=== PATIENT | female | born 1975 | race Two or more races ===

== ENCOUNTER 2018-02-28 13:56 | Day surgery (SDC) | payer OTHER ==
[2018-02-22 15:41] VITALS: BMI 33.4
--- NOTE | 2018-02-28 11:00 | HP ---
History & Physical Update - History History: No Change - Physical Physical: No Change - Assessment Assessment: No Change - Plan Plan: No Change (full H&P in chart from 02/10/2018)
[~2018-02-28 13:56] MED LIST: ACETAMINOPHEN 325 MG TABLET (FP) PO PRN; BUPIVACAINE HCL/PF (5 MG/ML) 30 ML VIAL IJ ONE; CLINDAMYCIN PHOSPHATE 600 MG/4 ML VIAL ONE; DEXAMETHASONE SOD PHOSPHATE 4 MG/1 ML VIAL ONE; DEXAMETHASONE SOD PHOSPHATE/PF 10 MG/ML SDV ONE; GELATIN, ABSORBABLE 100 EACH SPONGE TP ONE; KETAMINE HCL 200 MG/20 ML VIAL ONE; LIDOCAINE 1%/EPI 1:100000 (20 ML MULTI DOSE VIAL) ONE; MIDAZOLAM HCL 2 MG/2 ML SINGLE DOSE VIAL ONE; ONDANSETRON 4 MG/2 ML VIAL IVPUSH PRN; ONDANSETRON 4 MG/2 ML VIAL ONE; PROMETHAZINE HCL 25 MG/1 ML VIAL IVPUSH PRN; PROPOFOL 20 ML ONE; SUCCINYLCHOLINE CHLORIDE 200 MG/10 ML VIAL ONE; THROMBIN (BOVINE) 5,000 UNIT VIAL TP ONE; fentaNYL CITRATE 250 MCG/5 ML VIAL ONE; oxyCODONE HCL 10 MG SUSTAINED ACTING TABLET PO ONE; oxyCODONE HCL 5 MG TABLET PO PRN
[2018-02-28] MEDS ORDERED: LACTATED RINGERS SOLUTION 1,000 ML IV SCH ×2 (14:00)
[2018-02-28] MEDS ORDERED: NAPROXEN 500 MG TABLET (FP) PO SCH (14:00)
[2018-02-28] MEDS ORDERED: ALBUTEROL SO4 8 GM HFA INHALER IH PRN (14:00)
--- NOTE | 2018-02-28 14:03 | OP ---
Operative Note - Note: Operative Date: 02/28/18 Pre-Operative Diagnosis: cervcial stenosis Operation: anterior cervical disectomy and fusion of C4-C5 and C5-C6 Surgeon: Phill Caballero Process Mold Technician: Valarie Gonzales Anesthesiologist/BLACK ASH WORKER: Alvin Wood Anesthesia: Spinal Estimated Blood Loss (mls): 20 Fluid Volume Replaced (mls): 1,300 Operative Report Dictated: Yes
--- NOTE | 2018-02-28 14:08 | SURG ---
Surgery Aircraft De Icer Installer Note Aircraft De Icer Installer: Valarie Gonzales PA-C Date of Service: 02/28/18 Diagnosis: cervical stenosis Procedure: anterior cervcial disectomy fusion of C4-C5 and C5-C6 I was present for the entirety of the operative procedure. For further detail, please refer to operative report. Visit type - Case Type Case Type: Scheduled - Emergency Emergency Visit: No - New patient This patient is new to me today: Yes Date on this admission: 02/28/18
[2018-02-28] MEDS ORDERED: ACETAMINOPHEN 325 MG TABLET (FP) ONE (14:42)
[2018-02-28] MEDS ORDERED: diazePAM 2 MG TABLET ONE (14:42)
[2018-02-28] MEDS ORDERED: diazePAM 2 MG TABLET PO SCH (15:00)
[2018-02-28] MEDS ORDERED: oxyCODONE HCL 5 MG TABLET ONE (15:58)
[2018-02-28] MEDS ORDERED: BENZOCAINE/MENTH/CETYLPYRD CL 1 EACH LOZENGE MM PRN (16:27)
[2018-02-28] MEDS ORDERED: CLINDAMYCIN PHOSPHATE 600 MG/4 ML VIAL ONE (16:40)
[2018-02-28] MEDS ORDERED: DEXAMETHASONE SOD PHOSPHATE 4 MG/1 ML VIAL ONE (16:41)
[2018-02-28] MEDS ORDERED: DEXAMETHASONE SOD PHOSPHATE 4 MG/1 ML VIAL IVPB ONE (17:00)
[2018-02-28] MEDS ORDERED: CLINDAMYCIN 600MG PREMIX IVPB 600 MG/50 ML BAG IVPB ONE (17:00)
[2018-02-28 19:11] VITALS: TEMP 98.1
[2018-02-28 19:44] VITALS: BP 124/81; PULSE 71
--- NOTE | 2018-02-28 20:41 | OP ---
DATE OF OPERATION: 02/28/2018 PREOPERATIVE DIAGNOSIS: Cervical stenosis C4-5, C5-6. POSTOPERATIVE DIAGNOSIS: Cervical stenosis C4-5, C5-6. PROCEDURE PERFORMED: Anterior cervical diskectomy and fusion C4-5, anterior cervical diskectomy and fusion C5-6, placement of instrumentation at C4-C6. SURGEON: Phill Caballero M.D. SCREENING TECH: José Miguel Israel ESTIMATED BLOOD LOSS: 50 mL INTRAVENOUS FLUIDS: Per anesthesia. ANESTHESIA: General/TLIP. COMPLICATIONS: There were none. DISPOSITION: Patient brought to the PACU in stable condition. INDICATION FOR SURGERY: The patient is a 43-year-old female who has been suffering from pain from her back from her neck down her arms. X-rays and MRI were completed, which noted she had a herniated disk at C4-5 and C5-6. She had gone through an exhaustive course of treatment for this which included medications, physical therapy, as well as injections. Unfortunately, the pain continued to persist in spite of all this. At this point, risks, benefits, and alternatives were discussed and the patient consented to surgery. OPERATIVE NOTE: Patient is brought to the operating room by the anesthesia staff. After appropriate patient identification is performed, general anesthesia was given along with an SCP block. Patient was placed supine on the OR table with arms tucked in at the side. A shoulder roll was placed underneath the shoulders and her neck to the point she tolerated in the preoperative holding area. A needle was taped onto her neck to tawanna off the C4-5 level. An x-ray is taken to confirm this is correct. Nada were removed, and 10 mL of lidocaine with epinephrine was injected into her neck at this time. Her neck was prepped and draped in a sterile manner. At this point timeout was completed. A 2-inch incision was made on the left side of her neck. Dissection was carried down to the platysma. The platysma was cut in line of the skin incision. Next interval between the sternocleidomastoid muscle as well as strap muscles were developed. Next the interval between the carotid sheath as well as tracheal esophagus was developed. A spinal needle was placed into the C5-6 disk. An x-ray was taken to confirm this was correct. The needle was removed, and the microscope was brought in. [place] pins were placed in the body of C4 and C6. A knife was used to incise the disk, and disk traction is applied. At this point, a Peterson was used to elevate the disks off the end plates with a combination of pituitaries, Kerrisons and curets. A diskectomy was completed. The end plates were decorticated at this time. Cages filled with bone graft were placed into C4-5, C5-6. A screw was placed into the body of C4. A screw was placed into the body of C5 and C5-C6. Nix pin was removed. AP and lateral x-rays confirmed the instrumentation being in good position. Final tightening was performed. The platysma was closed with 2-0 Vicryl suture. Skin was closed with 3-0 Monocryl suture. Dermabond was applied. Steri-Strips were applied. Sterile dressing was applied. Patient was placed supine on OR bed, extubated in the OR, and brought to the PACU in stable condition. Luca OROZCO/[id number] MTDD
[2018-03-01] MEDS ORDERED: ATORVASTATIN CA 40 MG TABLET (FP) PO SCH (10:00)
[2018-03-01] MEDS ORDERED: MULTIVITAMINS (DAILY MVI) TABLET (FP) PO SCH (10:00)
--- NOTE | 2018-03-02 13:02 | PATH ---
Surgical Pathology Report Patient Name: [facility]. Rec. #: [id number] /Age/Gender: 1975 (Age: 43) / F Account: <[id number]> Location: [facility] [place] [facility] Taken: 02/28/2018 Received: 02/28/2018 Reported: 03/02/2018 Physicians: Phill Caballero M.D. Specimen(s) Received C4-5, C5-6 DISC Clinical History Cervical stenosis Final Diagnosis DISC, C4-5, C5-6, ANTERIOR CERVICAL DISCECTOMY AND FUSION: INTERVERTEBRAL DISC TISSUE. Electronically Signed Fatuma Alexis M.D. Gross Description Received in formalin labeled "C4-5, C5-6 disc," is a 2.0 x 1.8 x 0.3 cm aggregate of nayak fragments of fibrocartilaginous tissue. The specimen is entirely submitted in one cassette. /03/01/2018 [facility]03/01/2018
== END 2018-02-28 19:40 | disposition home or self-care (01) ==
LOC: FASUSAT 13:56 → FASU 19:40 → FASUSAT 19:40
PROVIDERS: ATTEND Orthopaedic Surgery Orthopaedic Surgery of the Spine
PROC: 0RG10A0 Fusion of Cervical Vertebral Joint with Interbody Fusion Device, Anterior Approach, Anterior Column, Open Approach (ICD-10-PCS; 2018-02-28)
PROC: 0RG10K0 Fusion of Cervical Vertebral Joint with Nonautologous Tissue Substitute, Anterior Approach, Anterior Column, Open Approach (ICD-10-PCS; 2018-02-28)
PROC: 0RB30ZZ Excision of Cervical Vertebral Disc, Open Approach (ICD-10-PCS; principal; 2018-02-28 12:16)
DX: M48.02 Spinal stenosis, cervical region (principal)
CPT/HCPCS: 22551; 22552; 22845; 22853; C1889; 72050-TC-FY; 76001-TC-FY; 88304-TC; 94760